=== PATIENT | male | born 1945 | race Caucasian/White ===

== ENCOUNTER 2023-07-10 19:13 | Emergency (ER) | payer OTHER, SELFPAY ==
--- NOTE | ~2023-07-10 | CT_ITS ---
EXAMINATION: CT ABDOMEN AND PELVIS WITHOUT CONTRAST CLINICAL INFORMATION: Abdominal pain. COMPARISON: None available. TECHNIQUE: Multidetector volumetric imaging was performed from the superior aspect of the liver through the pubic symphysis. Sagittal and coronal reformatted images were obtained on the technologist's workstation. This CT examination was performed using dose optimization techniques as appropriate, variously including the following: *Automated exposure control *Adjustment of mA and/or kV according to patient size (this includes techniques or standardized protocols for targeted exams where dose is matched to indication/reason for exam; i.e. extremities or head) *Use of iterative reconstruction technique DLP: 1013 mGy-cm FINDINGS: LUNG BASES: Minimal atelectatic changes seen in left lung base. The heart size is normal. Moderate coronary artery calcification seen. LIVER, GALLBLADDER, AND BILIARY TREE: The liver is normal in size, shape, and attenuation. There is a 1.1 cm hypodense lesion right hepatic lobe and 1.4 cm lesion left hepatic lobe on axial image 18/2. No additional lesions seen. No intrahepatic ductal dilatation. There are multiple radiopaque dependent gallstones without wall thickening. PANCREAS: Unremarkable. SPLEEN: Unremarkable. ADRENAL GLANDS: Unremarkable. KIDNEYS AND URETERS: The kidneys are normal in size, shape, and attenuation. No hydronephrosis, hydroureter, or calculi seen. There is mild bilateral perinephric stranding. BLADDER: Unremarkable. GASTROINTESTINAL TRACT: There is moderate-sized stool seen throughout the colon without distention. The small bowel loops are normal caliber. Appendix is not visualized. ABDOMINAL WALL: There is a small umbilical hernia containing fat. LYMPH NODES: Normal. VASCULAR: There is atherosclerotic calcification of abdominal aorta without aneurysmal dilatation. PELVIC VISCERA: The prostate gland is enlarged extending into the base of bladder. OSSEOUS STRUCTURES: Mild degenerative disc changes L4-L5 and L5-S1 disc levels is noted. CT/CT abdomen pelvis wo IV con IMPRESSION: 1. Cholelithiasis without wall thickening. 2. 2 hypodense liver lesions, probable cyst. Correlate with ultrasound. 3. Mild constipation. 4. Small umbilical hernia containing fat. 5. Moderate prostate enlargement extending into the base of bladder. Fleischner guidelines were followed.
[2023-07-10 19:27] VITALS: BP 161/71; BP 182/89; PULSE 100; PULSE 94; RESP 17; TEMP 37.6; O2SAT 94; O2SAT 96; BMI 31.2
--- NOTE | 2023-07-10 19:35 | ED_ITS ---
HPI - Abdominal Pain General Chief Complaint: General Medical Stated Complaint: Abd pain, unable to use the bathroom x1day Time Seen by Provider: 07/10/23 19:23 Source: patient, family (Spouse) and EMS Mode of arrival: EMS Limitations: no limitations History of Present Illness HPI narrative: 77-year-old male came in by EMS for evaluation of abdominal pain and possible bowel blockage, and unable to urinate for 2 days. 77-year-old male with history of appendectomy at age of 6 years had history of bowel obstruction came in concern of bowel obstruction, no bowel movement for the past 2 days, no passing gas, patient also reported no urination for the past 2 days, otherwise declined nausea, vomiting, diarrhea, constipation, fever, chills. Patient is a victim of stroke with left hemiparesis, patient is bed ridden. Related Data Allergies Allergy/AdvReac Type Severity Reaction Status Date / Time lorazepam [From Ativan] Allergy Unknown Unknown Verified 07/10/23 19:34 morphine Allergy Unknown Unknown Verified 07/10/23 19:34 Review of Systems Review of Systems All other systems are reviewed and are negative Constitutional: Reports as per HPI and Reports no additional constitutional complaints Eyes: Reports as per HPI and Reports no additional eye complaints Reports system reviewed and no additional complaints, except as documented Cardiovascular: Reports as per HPI and Reports no additional cardiovascular complaints Respiratory: Reports as per HPI and Reports no additional respiratory complaints Gastrointestinal: Reports as per HPI and Reports no additional gastrointestinal complaints Genitourinary: Reports no additional female genitourinary complaints Musculoskeletal: Reports no additional musculoskeletal complaints Skin/Breast: Reports system reviewed and no additional complaints, except as docu Psychiatric: Reports no additional psychiatric complaints Endocrine: Reports no additional endocrine complaints Hematologic/Lymphatic: Reports no additional hematologic/lymphatic complaints Allergic/Immunologic: Reports no additional allergic/immunologic complaints Reports system reviewed and no additional complaints, except as documented and Reports Abnormal speech present [facility] Social History Social History Alcohol intake: former Smoked in Last 30 Days: No Use of substances other than those prescribed or required for medical reasons: No Advance Directives: No Advance Directives Information Provided: Yes Physical Exam ED Vital Signs: Vital Signs - 24 hr 07/10/23 19:27 07/10/23 22:37 Temperature 99.6 F 99.9 F Pulse Rate 94 87 Respiratory Rate 17 17 Blood Pressure 161/71 H 154/64 H Pulse Oximetry 94 95 Oxygen Delivery Method Room Air Room Air BMI result Body Mass Index 31.2 Vital signs have been reviewed as appeared to be correct. Blood pressure normal. Heart rate normal. Respiration rate normal. Temperature normal. Oxygen saturation normal. Appearance: Alert. Oriented X3. No acute distress. Head: Normal external exam. Normocephalic. Atraumatic. No Delatorre signs noted. No raccoon eyes noted Eyes: PERRLA. EOMI. Conjunctiva and sclera normal. Eyelids normal. ENT: TM's Normal. Pharynx normal. Uvula midline. Moist mucous membranes. No trismus noted. No drooling noted. No muffled voice noted. Neck: Normal inspection. Neck supple. FROM. No adenopathy. Thyroid Normal. No meningeal signs. No neck mass noted. CVS: Normal heart rate and rhythm. Heart sound normal. No murmurs noted. Pulses normal throughout. Respiratory: No respiratory distress. Painless inspiration. Breath sounds normal. No wheezes/rales/rhonchi noted. Chest nontender. No accessory muscle usage noted or decreased air movement noted. Abdomen: Distended, mild tenderness, no rebound tenderness, no guarding. Bowel sounds normal in all 4 quadrants. No distention noted. No organomegaly noted. No visible injury noted. Rectal exam: Empty vault with no stool, enlarged prostate slightly tender otherwise no palpable mass or hemorrhoids. Back: No CVA tenderness. Full range of motion noted. Skin: Skin warm and dry. Normal skin color. Normal skin turgor. No rashes/lesions/lacerations noted. Extremities: No lower extremity edema. Extremities exhibit normal range of motion. Extremities nontender. Neuro: Oriented X 3. Cranial nerve exam: II-XII are grossly intact No motor deficit. No sensory deficit. Reflexes normal. Course Course Course Narrative: 77-year-old male with left hemiparesis due to previous CVA patient is bedbound came in for urinary retention and unable to have a bowel movement. Patient while in the emergency department had bowel movement and passed gas, abdomen is less tender and less distended. Bladder scan showed 300 cc retained in the bladder patient required Brennan catheter to drain urine. Plan is will continue Brenann catheter with leg bag and follow up with Urology. Medical Decision Making Differential Diagnosis Differential Diagnoses: The differential diagnosis associated with the presentation includes (Small-bowel obstruction, constipation, urinary tension, enlarged prostate, UTI, electrolyte abnormalities, severe anemia, colitis, diverticulitis.) Admission/Observation Consideration of admission/observation: Escalation of care including admissi on/observation considered Lab Data MDM Lab Attestation statement: I reviewed the patient's lab results. 07/10/23 20:29 07/10/23 20:29 Labs: Lab Results 07/10/23 07/10/23 07/10/23 Range/Units 20:29 20:29 20:29 WBC 10.9 H (4.8-10.8) X10*3/uL RBC 5.28 (4.60-5.80) X10*6/uL Hgb 14.4 (14.0-18.0) g/dl Hct 45.7 (42.0-52.0) % MCV 86.6 (80.0-98.0) fL MCH 27.3 (27.0-33.0) pg MCHC 31.5 (31.0-36.0) g/dl RDW 14.1 (11.0-16.0) % Plt Count 220 (160-400) X10*3/uL MPV 10.2 (9.4-12.4) fL Immature Gran % (Auto) 0.4 (0.0-0.4) % Neut % (Auto) 82.8 H (45-73) % Lymph % (Auto) 11.6 L (20-40) % [place] % (Auto) 4.9 (2-11) % Eos % (Auto) 0.1 (0-4) % Baso % (Auto) 0.2 (0-2) % Lymph # (Auto) 1.3 (1.2-4.9) X10*3/uL [place] # (Auto) 0.5 (0.1-1.2) X10*3/uL Eos # (Auto) 0.0 (0.0-0.4) X10*3/uL Baso # (Auto) 0.0 (0.0-0.2) X10*3/uL Abs Immat Gran (auto) 0.04 H (0.00-0.03) X10*3/uL Absolute Neuts (auto) 9.0 H (2.0-8.3) x10*3/uL Absolute Nucleated RBC 0.000 (0.0-0.012) X10*3/uL Nucleated RBC % (auto) 0.0 (0.0-0.2) /100WBC Sodium 143 (135-145) mmol/L Potassium 3.3 (3.3-5.1) mmol/L Chloride 115 H (96-108) mmol/L Carbon Dioxide 23 (22-29) mmol/L Anion Gap 8 L (12-20) BUN 12 (9-16) mg/dL Creatinine 0.66 (0.5-1.4) mg/dL Estim Creat Clear Calc 115.5 Estimated GFR > 60 Random Glucose 81 (60-115) mg/dL Calcium 7.1 L (8.4-10.2) mg/dL Total Bilirubin 1.1 H (0.0-1.0) mg/dL Direct Bilirubin 0.4 (0.0-0.5) mg/dL AST 11 (5-37) U/L ALT < 5 (0-40) U/L Alkaline Phosphatase 69 (39-117) U/L Troponin I High Sens 5.3 (<3.5-35.0) ng/L B-Natriuretic Peptide (<100) pg/mL Total Protein 4.9 L (6.5-8.0) g/dL Albumin 2.7 L (3.5-5.0) g/dL Lipase 13 (8-78) U/L Urine Color Urine Appearance Urine pH (5.0-9.0) Ur Specific Carson (1.005-1.025) Urine Protein (Neg-Trace) mg/dL Urine Glucose (UA) (Negative) mg/dL Urine Ketones (Negative) mg/dL Urine Blood (Negative) Urine Nitrite (Negative) Ur Leukocyte Esterase (Negative) Urine RBC (0-2) /HPF Urine WBC (0-5) /HPF Ur Squamous Epith Cells (0-2) /HPF Urine Bacteria (None Seen) Hyaline Casts (0-2) /LPF 07/10/23 07/10/23 Range/Units 20:29 23:28 WBC (4.8-10.8) X10*3/uL RBC (4.60-5.80) X10*6/uL Hgb (14.0-18.0) g/dl Hct (42.0-52.0) % MCV (80.0-98.0) fL MCH (27.0-33.0) pg MCHC (31.0-36.0) g/dl RDW (11.0-16.0) % Plt Count (160-400) X10*3/uL MPV (9.4-12.4) fL Immature Gran % (Auto) (0.0-0.4) % Neut % (Auto) (45-73) % Lymph % (Auto) (20-40) % [place] % (Auto) (2-11) % Eos % (Auto) (0-4) % Baso % (Auto) (0-2) % Lymph # (Auto) (1.2-4.9) X10*3/uL [place] # (Auto) (0.1-1.2) X10*3/uL Eos # (Auto) (0.0-0.4) X10*3/uL Baso # (Auto) (0.0-0.2) X10*3/uL Abs Immat Gran (auto) (0.00-0.03) X10*3/uL Absolute Neuts (auto) (2.0-8.3) x10*3/uL Absolute Nucleated RBC (0.0-0.012) X10*3/uL Nucleated RBC % (auto) (0.0-0.2) /100WBC Sodium (135-145) mmol/L Potassium (3.3-5.1) mmol/L Chloride (96-108) mmol/L Carbon Dioxide (22-29) mmol/L Anion Gap (12-20) BUN (9-16) mg/dL Creatinine (0.5-1.4) mg/dL Estim Creat Clear Calc Estimated GFR Random Glucose (60-115) mg/dL Calcium (8.4-10.2) mg/dL Total Bilirubin (0.0-1.0) mg/dL Direct Bilirubin (0.0-0.5) mg/dL AST (5-37) U/L ALT (0-40) U/L Alkaline Phosphatase (39-117) U/L Troponin I High Sens (<3.5-35.0) ng/L B-Natriuretic Peptide 35 (<100) pg/mL Total Protein (6.5-8.0) g/dL Albumin (3.5-5.0) g/dL Lipase (8-78) U/L Urine Color Dark Yellow Urine Appearance Clear Urine pH 6.0 (5.0-9.0) Ur Specific Carson 1.020 (1.005-1.025) Urine Protein Trace (Neg-Trace) mg/dL Urine Glucose (UA) Negative (Negative) mg/dL Urine Ketones 15 (Negative) mg/dL Urine Blood Negative (Negative) Urine Nitrite Negative (Negative) Ur Leukocyte Esterase Trace H (Negative) Urine RBC 0-2 (0-2) /HPF Urine WBC 0-5 (0-5) /HPF Ur Squamous Epith Cells 0-2 (0-2) /HPF Urine Bacteria None Seen (None Seen) Hyaline Casts 0-2 (0-2) /LPF Independent Interpretation I performed an independent interpretation of an: CT Scan (Abdomen and pelvis:1. Cholelithiasis without wall thickening. 2. 2 hypodense liver lesions, probable cyst. Correlate with ultrasound. 3. Mild constipation. 4. Small umbilical hernia containing fat. 5. Moderate prostate enlargement extending into the base of bladder. ) Radiology Impression Discussion of test interpretation with radiology: I have reviewed the radiologist's reading. Chronic Conditions Patient?s care impacted by: Other (Bedridden.) Medications Administered Discontinued Medications Generic Name Dose Route Start Last Admin Trade Name Freq PRN Reason Stop Dose Admin Acetaminophen 650 mg 07/10/23 23:07 07/10/23 23:10 Acetaminophen 325 Mg Tablet PO 07/10/23 23:08 650 mg ONCE ONE Administration Sodium Chloride 1,000 mls @ 999 mls/hr 07/10/23 19:38 07/10/23 20:53 Ns IV 07/10/23 20:38 Infused .Q1H1M ONE Infusion Discharge Plan Discharge Clinical Impression: Constipation, Acute urinary retention, Enlarged prostate Patient Disposition: Home, Self-Care Instructions: Brennan Catheter Placement and Care (ED) Referrals: Franco Dumont MD [Physician] -
--- NOTE | 2023-07-10 19:38 | ECG_ITS ---
Test Reason : GEN MED Blood Pressure : / mmHG Vent. Rate : 090 BPM Atrial Rate : 090 BPM P-R Int : 168 ms QRS Dur : 074 ms QT Int : 338 ms P-R-T Axes : 063 019 003 degrees QTc Int : 413 ms Normal sinus rhythm Nonspecific ST abnormality Abnormal ECG No previous ECGs available Referred By: Jessica Mckeon Electronically Signed By:CHAS PARKER
[2023-07-10] MEDS: 0.9 % Sodium Chloride 1,000 ML 999 ML IV (19:52)
--- NOTE | 2023-07-10 20:03 | PC.NURSE ---
Pt BIBA from home, for constant LLQ abdominal pain, and decreased UO x24 hours. IV established by EMS, Bladder scanned: 173 ml. Abdomen tender to the LLQ, bowel sounds hypoactive in LLQ. FLuids hung per MAR. Pt denies CP/SOB/N/V/D/burning with urination. Pt resting and no apparent distress.
[2023-07-10 20:32] LABS: MANUAL DIFF FLAG NO
[2023-07-10 20:40] LABS: Basophils Percent Auto 0.2 % (0-2); Eosinophils Percent Auto 0.1 % (0-4); Hematocrit 45.7 % (42.0-52.0); Hemoglobin 14.4 g/dl (14.0-18.0); Imm Gran Abs Auto 0.04 X10*3/uL (0.00-0.03); Imm Gran Pct Auto 0.4 % (0.0-0.4); Lymphocytes Absolute Auto 1.3 X10*3/uL (1.2-4.9); Lymphocytes Percent Auto 11.6 % (20-40); Mean Corpuscular HGB Conc 31.5 g/dl (31.0-36.0); Mean Corpuscular Hemoglobin 27.3 pg (27.0-33.0); Mean Corpuscular Volume 86.6 fL (80.0-98.0); Mean Platelet Volume 10.2 fL (9.4-12.4); Monocytes Absolute Auto 0.5 X10*3/uL (0.1-1.2); Monocytes Percent Auto 4.9 % (2-11); Neutrophils Percent Auto 82.8 % (45-73); Platelet Count 220 X10*3/uL (160-400); Red Blood Count 5.28 X10*6/uL (4.60-5.80); Red Cell Distribution Width 14.1 % (11.0-16.0); White Blood Count 10.9 X10*3/uL (4.8-10.8)
[2023-07-10 20:53] LABS: Alanine Aminotransferase < 5 U/L (0-40); Albumin Level 2.7 g/dL (3.5-5.0); Alkaline Phosphatase 69 U/L (39-117); Anion Gap 8 (12-20); Aspartate Amino Transferase 11 U/L (5-37); Bilirubin Direct 0.4 mg/dL (0.0-0.5); Bilirubin Total 1.1 mg/dL (0.0-1.0); Blood Urea Nitrogen 12 mg/dL (9-16); Calcium 7.1 mg/dL (8.4-10.2); Carbon Dioxide 23 mmol/L (22-29); Chloride 115 mmol/L (96-108); Creatinine Clr Calc Pharmacy 115.5; Estimated Glomerular Filt Rate > 60; Glucose Random 81 mg/dL (60-115); Lipase 13 U/L (8-78); Potassium 3.3 mmol/L (3.3-5.1); Sodium 143 mmol/L (135-145); Total Protein 4.9 g/dL (6.5-8.0)
[2023-07-10 20:56] LABS: B Type Natriuretic Peptide 35 pg/mL (<100)
[2023-07-10 20:58] LABS: Troponin-I High Sensitivity 5.3 ng/L (<3.5-35.0)
--- NOTE | 2023-07-10 21:37 | MHC.EDTECH ---
patient had a small BM this tech clean the patient up
[2023-07-10 22:37] VITALS: BP 154/64; PULSE 87; RESP 17; TEMP 37.7; O2SAT 95
[2023-07-10] MEDS: Acetaminophen 325 MG TABLET 650 MG PO (23:10)
--- NOTE | 2023-07-10 23:10 | MHC.EDTECH ---
attempted to ambulate pt w/ tech makenzie per order. pt unable to bear weight on left leg. pt yelling at techs to remove IV, not listening to directions. t/w informed tech cannot remove IV per hospital policy. pt varsha. pt assisted back to bed. ambulation trial unsuccessful.
--- NOTE | 2023-07-10 23:28 | PC.NURSE ---
Addendum entered by Dede Clarke 07/10/23 23:53: 300 mLs of clear, dark yellow urine. Original Note: Pt medicated per MAR, Straight cath for urine sample, pt tolerated well, urine sample colleceted and sent to lab.
[2023-07-10 23:36] LABS: Appearance Urine Clear; Color Urine Dark Yellow; Glucose Urine UA Negative (Negative); Leukocyte Esterase Urine Trace (Negative); Nitrite Urine Negative (Negative); UMIC TRIGGER UACC YES; Urine Blood Negative (Negative); Urine Ketones 15 mg/dL (Negative); Urine Protein Trace mg/dL (Neg-Trace)
[2023-07-10 23:42] LABS: Bacteria Urine None Seen (None Seen); Hyaline Casts Urine 0-2 /LPF (0-2); RBC Urine 0-2 /HPF (0-2); Squamous Epithelial Cell Urine 0-2 /HPF (0-2); WBC Urine 0-5 /HPF (0-5)
--- NOTE | 2023-07-11 00:43 | MHC.EDTECH ---
Call out to [facility] @[phone] to book BLS transport back home. [facility] dispatch gave an ETA of 20 mins.
--- NOTE | 2023-07-11 01:09 | PC.NURSE ---
16 Fr Coude mendez placed, pt tolerated well, draining clear, dark yellow urine. at bedside, instructed of mendez cath change, discharge instructions understood.
== END 2023-07-11 01:11 | disposition home or self-care (01) ==
PROVIDERS: Emergency Provider Emergency Medicine
DX: K59.00 Constipation, unspecified (principal); R33.9 Retention of urine, unspecified; N40.0 Benign prostatic hyperplasia without lower urinary tract symptoms; R06.02 Shortness of breath; R11.2 Nausea with vomiting, unspecified; Z79.899 Other long term (current) drug therapy
CPT/HCPCS: 36415; 74176; 80048; 80076; 81001; 83690; 83880; 84484; 85025; 93005; 96360; 99284; 99285